=== PATIENT | female | born 1950 | race Caucasian/White ===

== ENCOUNTER → 2020-07-28 | Emergency (ER) | payer OTHER ==
[~2020-07-28] VITALS: Ht 149.9 cm; Wt 67.1 kg
[~2020-07-28] MED LIST: NABUMETONE500 MG PO; NORFLEX100MG PO; SYNTHROID50 MCG PO; ZESTRIL5 MG PO
== END | disposition home or self-care (01) ==
LOC: ER 11:07
DX: S33.5XXA Sprain of ligaments of lumbar spine, initial encounter (principal); M54.2 Cervicalgia; M54.6 Pain in thoracic spine; X50.0XXA Overexertion from strenuous movement or load, initial encounter; Y93.B2 Activity, push-ups, pull-ups, sit-ups; Y92.038 Other place in apartment as the place of occurrence of the external cause; Y99.8 Other external cause status

== ENCOUNTER 2021-03-14 08:00 | Outpatient (CLI) | payer OTHER | END 2021-03-14 08:30 | disposition home or self-care (01) | LOC: PPH VACUNA 08:00 | PROVIDERS: ATTEND Emergency Medicine Pediatric Emergency Medicine | DX: Z23 Encounter for immunization (principal) ==